=== PATIENT | female | born 1945 | race Hispanic/Latino ===

== ENCOUNTER → 2018-01-16 | Outpatient (CLI) | payer OTHER | END | disposition home or self-care (01) | LOC: RAH 11:09 | PROVIDERS: ATTEND Family Medicine | DX: Z12.31 Encounter for screening mammogram for malignant neoplasm of breast (principal) | CPT/HCPCS: 77067 ==

== ENCOUNTER → 2018-01-24 | Outpatient (CLI) | payer OTHER | END | disposition home or self-care (01) | LOC: OIH 13:35 | PROVIDERS: ATTEND Family Medicine | DX: M85.812 Other specified disorders of bone density and structure, left shoulder (principal) | CPT/HCPCS: 73030 ==

== ENCOUNTER → 2019-08-14 | Outpatient (CLI) | payer OTHER | END | disposition home or self-care (01) | LOC: RAH 09:08 | PROVIDERS: ATTEND Family Medicine | DX: Z12.31 Encounter for screening mammogram for malignant neoplasm of breast (principal) | CPT/HCPCS: 77067 ==

== ENCOUNTER → 2022-01-08 | Outpatient (CLI) | payer OTHER ==
[~2022-01-08] MED LIST: REGADENOSON 0.4 MG/5 ML PF SYG IVP SCH
== END | disposition home or self-care (01) ==
LOC: RAH 08:42
PROVIDERS: ATTEND Family Medicine
DX: R07.9 Chest pain, unspecified (principal)
CPT/HCPCS: 78452; 96374; 93017; J2785; A9500 ×2

== ENCOUNTER → 2024-03-20 | Outpatient (CLI) | payer OTHER ==
[~2024-03-20] MED LIST changes: +GADOTERATE MEGLUMINE 10 MMOL/20 ML VIAL IV ONE; -REGADENOSON 0.4 MG/5 ML PF SYG IVP SCH
--- NOTE | 2024-03-20 12:40 | HMCIMG ---
MR BRAIN WWO CON REASON: G50 Trigeminal neuralgia COMPARISON: There are no prior MRI scans available for comparison. TECHNIQUE: Routine cerebral imaging protocol was performed. Images are also obtained pre and post gadolinium contrast infusion. Postcontrast images were obtained with high-resolution thin section technique epicentered on the brainstem and skull base. High-resolution the CONTRAST: 15 cc MultiHance 529 IV. FINDINGS: There is scattered foci of increased signal intensity in the deep central white matter on T2 and FLAIR images, consistent with small vessel disease, mild in degree. There is otherwise normal appearing brain parenchyma. There are no focal mass lesions. There are no areas of abnormal contrast enhancement or abnormal signal intensity. Ventricles and sulci appear normal. Posterior fossa and brainstem structures appear unremarkable. There is no evidence of intracranial hemorrhage. Diffusion-weighted images are negative for an acute ischemic process. There are no abnormal fluid collections. Extracranial soft tissues appear normal as well. Additional high resolution images of the skull base show normal appearance of the brainstem. Expected course of the trigeminal nerve shows normal findings. There are no focal masses. There are no focal areas of abnormal contrast enhancement. IMPRESSION: 1. Normal MRI of the brain. Tube. Normal additional high resolution pre and postcontrast images of the skull base brainstem structures.
== END | disposition home or self-care (01) ==
LOC: RAH 09:06
PROVIDERS: ATTEND Family Medicine
DX: G50.0 Trigeminal neuralgia (principal)
CPT/HCPCS: 70553; A9575

== ENCOUNTER 2024-12-21 18:33 | Emergency (ER) | payer OTHER ==
[~2024-12-21] VITALS: Ht 157.5 cm; Wt 68.0 kg
--- NOTE | 2024-12-21 18:42 | ERN ---
ED Note History of Present Illness Stated Complaint: FACIAL PAIN Chief Complaint: Face Pain/Problem Time Seen by MD: 18:36 Dictation: PATIENT IS A 79-YEAR-OLD FEMALE COMING IN TODAY WITH TONGUE PAIN AND A FISSURE SHE HAS HAD SINCE TUESDAY. NO FEVER NO CHILLS NO NAUSEA VOMITING. SHE STATES SHE SAW HER PRIMARY CARE DOCTOR ON TUESDAY WHO TOLD HER TO GO HOME THAT IT WAS NOTHING. HOWEVER, THE PATIENT WAS NOT GIVEN A DIAGNOSIS. SHE WAS GIVEN AN INJECTION OF A STEROID. Allergies: Coded Allergies: No Allergy Information Available (Verified Allergy, Unknown, 01/08/22) Past Medical History Past Medical History: No Pertinent History Surgical History: None History: Not Applicable RN Note Reviewed/Agreed w/PFSH: Yes Review of System Dictation CONSTITUTIONAL: NEGATIVE EXCEPT FOR HPI HEAD/FACE: NEGATIVE EXCEPT FOR HPI EENT: NEGATIVE EXCEPT FOR HPI TONGUE PAIN RESPIRATORY: NEGATIVE EXCEPT FOR HPI GASTROINTESTINAL/ABDOMINAL: NEGATIVE EXCEPT FOR HPI GENITOURINARY: NEGATIVE EXCEPT FOR HPI MUSCULOSKELETAL: NEGATIVE EXCEPT FOR HPI INTEGUMENTARY: NEGATIVE EXCEPT FOR HPI NEUROLOGICAL/PSYCH: NEGATIVE EXCEPT FOR HPI HEMATOLOGIC/LYMPHATIC: NEGATIVE EXCEPT FOR HPI ALL SYSTEMS NEGATIVE, EXCEPT NOTED ABOVE. 13 POINT REVIEW OF SYSTEMS ASSESSED AND ALL NEGATIVE EXCEPT FOR ABOVE. Initial Vital Sign VS Vital Signs Date Time Temp Pulse Resp B/P (MAP) Pulse Ox O2 Delivery O2 Flow Rate FiO2 12/21/24 18:35 98.4 62 20 145/63 99 Room Air Physical Exam Dictation VITAL SIGNS REVIEWED GENERAL APPEARANCE: ALERT, ORIENTED X 3, NO ACUTE DISTRESS, WELL DEVELOPED, NOURISHED. HEAD AND FACE: NON-TRAUMATIC. EYES: PERRL, PINK CONJUNCTIVAS, EYELID NO TRAUMA, ANTERIOR CHAMBER WITH ARCUS SENILIS. EARS: PINNAS INTACT AND NO SIGNS OF TRAUMA OR ERYTHEMA EAR CANALS CLEAR AND NO DISCHARGE TM NO ERYTHEMA NOSE: NO DISCHARGE, NO BLEEDING. OROPHARYNX: MOUTH NORMAL, PALE WITH A FISSURE NOTED CENTRALLY. PHARYNX CLEAR,NO ERYTHEMA, TONSILS NO EXUDATES, NO ABSCESSES NOTED, MUCOUS MEMBRANE MOIST NECK: SUPPLE, NON-TENDER, NO THYROMEGALY, NO MASSES, NO JVD, NO BRUITS BREAST:DEFERRED CHEST:NO TENDERNESS, NO CREPITUS, NO PARADOXICAL MOVEMENT, NO RETRACTIONS LUNGS:CLEAR, WELL-VENTILATED, SYMMETRIC, NO RALES, NO WHEEZING, NO RHONCHI, NO STRIDOR, GOOD BREATH SOUNDS BILATERALLY HEART: REGULAR RATE, REGULAR RHYTHM, NO MURMUR, NO GALLOPS VASCULAR: NO PERIPHERAL EDEMA, ABDOMEN: SOFT, POSITIVE BOWEL SOUNDS, NONDISTENDED, NO GUARDING, NONTENDER, NO REBOUND, NO MASSES NO HEPATOMEGALY, NO SPLENOMEGALY, NO STALLINGS'S SIGN, NO HERNIAS. RECTAL: DEFERRED GENITAL: DEFERRED NEUROLOGICAL: NORMAL SPEECH, MOTOR FUNCTION INTACT, SENSORY FUNCTION INTACT MUSCULOSKELETAL: NECK NONTENDER, FULL RANGE OF MOTION, BACK NONTENDER, FULL RANGE OF MOTION, EXTREMITIES: NONTENDER, FULL RANGE OF MOTION SKIN: COLOR PINK, DRY, NO TURGOR, NO RASH, NO LACERATIONS, NO ABRASIONS, NO CONTUSIONS. LYMPHATIC: DEFERRED Results (Laboratory/Radiology) Laboratory/Radiology Laboratory Tests Test 12/21/24 18:58 White Blood Count 10.1 K/uL (4.8-10.8) Red Blood Count 4.49 MIL/uL (4.00-5.50) Hemoglobin 12.4 g/dL (12.0-16.0) Hematocrit 38.6 % (36-48) Mean Corpuscular Volume 86.0 fL (79-99) Mean Corpuscular Hemoglobin 27.6 pg (27.0-33.0) Mean Corpuscular Hemoglobin Concent 32.1 g/dL (32.0-36.0) Red Cell Distribution Width 14.5 % (11.0-15.5) Platelet Count 267 K/uL (130-400) Mean Platelet Volume 10.1 fL (7.5-10.5) Immature Granulocyte % (Auto) 0.3 % (0-1) Neutrophils (%) (Auto) 69.7 % (40.0-77.0) Lymphocytes (%) (Auto) 23.0 % (21.0-51.0) Monocytes (%) (Auto) 6.4 % (3.0-13.0) Eosinophils (%) (Auto) 0.3 % (0.0-8.0) Basophils (%) (Auto) 0.3 % (0.0-5.0) Neutrophils # (Auto) 7.0 K/uL (1.8-7.7) Lymphocytes # (Auto) 2.3 K/uL (1.0-4.8) Monocytes # (Auto) 0.6 K/uL (0.1-1.0) Eosinophils # (Auto) 0.03 K/uL (0.00-0.70) Basophils # (Auto) 0.03 K/uL (0.00-0.20) Absolute Immature Granulocyte (auto 0.03 K/uL (0-1) Nucleated Red Blood Cells 0.0 % (0.0-0.19) Sodium Level 142 mmol/L (136-145) Potassium Level 4.3 mmol/L (3.5-5.1) Chloride Level 104 mmol/L (101-111) Carbon Dioxide Level 29 mmol/L (21-32) Blood Urea Nitrogen 14 mg/dL (7-18) Creatinine 0.5 mg/dL (0.5-1.0) Glomerular Filtration Rate Calc 96 mL/min (>90) Random Glucose 104 mg/dL (70-105) Total Calcium 9.0 mg/dL (8.5-10.1) Labs Reviewed?: Yes ED Course ED Course Orders Procedure Category Date Status Time Cbc With Differential LAB 12/21/24 Complete 18:39 Basic Metabolic Panel LAB 12/21/24 Complete 18:39 Vital Signs Date Time Temp Pulse Resp B/P (MAP) Pulse Ox O2 Delivery O2 Flow Rate FiO2 12/21/24 18:35 98.4 62 20 145/63 99 Room Air 2024/LABS ARE UNREMARKABLE PATIENT WILL BE TREATED FOR GLOSSITIS SHE WILL BE GIVEN DIETARY GUIDELINES TO AVOID SPICY FOODS COFFEE TEA NICOTINIC ACID. NO TOMATO JUICE NO CITRUS FRUIT JUICE BRUSH TONGUE WITH SHE BRUSHES HER TEETH. SHE WILL BE PRESCRIBED DIFLUCAN 150 TOLD TO SEE HER DENTIST NEXT 1-2 DAYS Medical Decision Making MDM MEDICAL DECISION-MAKING BASED ON LABS TO RULE OUT BACTERIAL INFECTION ETIOLOGY OF GLOSSITIS LABS COMPLETELY UNREMARKABLE PATIENT WILL BE TREATED FOR GLOSSITIS WITH DIFLUCAN 150 X 1 DOSE MAY REPEAT IN 10 DAYS GIVEN DIETARY GUIDELINES TOLD TO SEE HER DENTIST NEXT 1-2 DAYS DX & DISP Disposition: Discharge Departure Impression: Primary Impression: Acute glossitis Condition: Stable Scripts Lidocaine HCl (Magic Mouthwash [Maalox/Lidocaine/Nystatin]) 200 Mg-200 Mg-20 M g/5 Ml Soln 15 ML PO TID for 7 Days, #355 ML 0 Refills 15 ML BY MOUTH, SWISH AND SPIT 3 TIMES A DAY FOR SEVEN DAYS. DO NOT SWALLOW. Prov: RHERONN BRITO 12/21/24 Fluconazole (Fluconazole) 150 Mg Tablet 150 MG PO ONCE, #2 TAB ONE TABLET BY MOUTH X1 DOSE. MAY REPEAT DOSE IN 10 DAYS. Prov: RONN BERGMAN 12/21/24 Additional Instructions: FOLLOW-UP WITH PRIMARY CARE PROVIDER IN 1 TO 2 DAYS. TAKE MEDICATIONS DIRECTED HERE IN THE EMERGENCY ROOM. OKAY TO CONTINUE HOME MEDICATIONS UNLESS OTHERWISE DISCUSSED DURING YOUR VISIT IN THE EMERGENCY ROOM TODAY. RETURN TO YOUR NEAREST EMERGENCY ROOM IF SYMPTOMS WORSEN OR IF THERE IS NO IMPROVEMENT. CALL 911 IF YOU NEED IMMEDIATE ASSISTANCE. TAKE TYLENOL OR MOTRIN SMAW-LDE-LCKLQUC NEEDED AND IF NO CONTRAINDICATIONS ARE PRESENT. INCREASE ORAL HYDRATION. A WOUND CULTURE OR URINE CULTURE WAS ORDERED HERE IN THE EMERGENCY ROOM DEPARTMENT PLEASE FOLLOW-UP WITH PRIMARY CARE PROVIDER AND ADVISE THEM TO GET REPEAT PORTS FROM OUR FACILITY. IF YOU HAD ANY KENA WRAP/SPLINTS THAT WERE APPLIED HERE, PLEASE DO NOT REMOVE THEM UNTIL YOU SEE YOUR PRIMARY CARE OR SPECIALTY. USE MAGIC MOUTHWASH 3 TIMES A DAY DIRECTED, DO NOT SWALLOW MESH WASH. TAKE DIFLUCAN X1 DOSE AND MAY REPEAT DOSE IN 10 DAYS. NO ICE TEA, NO SODA POP, NO SPICY FOODS, NO TOMATO JUICE, NO CITRUS FRUIT JUICE UNTIL CLEARED BY YOUR DENTIST OR DOCTOR. SEE YOUR DENTIST IN THE NEXT 1-2 DAYS FOR FOLLOW UP Referrals: IVAN TOBIN MD (PCP) Time of Disposition: 20:28 I have reviewed the case, and I agree with, Diagnosis and Plan RONN BERGMAN Dec 21, 2024 18:42
[2024-12-21 19:07] LABS: IMMATURE GRANULOCYTE ABSOLUTE 0.03 K/uL (0-1); NUCLEATED RED BLOOD CELLS 0.0 % (0.0-0.19); PLATELET COUNT (AUTO) 267 K/uL (130-400); RED BLOOD CELL COUNT(AUTO) 4.49 MIL/uL (4.00-5.50); RED CELL DISTRIBUTION WIDTH 14.5 % (11.0-15.5); WHITE BLOOD COUNT (AUTO) 10.1 K/uL (4.8-10.8)
[2024-12-21 19:13] LABS: CREATININE 0.5 mg/dL (0.5-1.0); GLOMERULAR FILTR. RATE CALC 96.0 mL/min (>90); GLUCOSE,RANDOM 104.0 mg/dL (70-105); SODIUM SERUM 142.0 mmol/L (136-145); UREA NITROGEN, BLOOD 14.0 mg/dL (7-18)
[2024-12-21] MEDS ORDERED: MAGIC PO (20:30)
[2024-12-21] MEDS ORDERED: FLUC150T48 PO (20:30)
[2024-12-21 21:00] VITALS: BP 145/63; PULSE 62; RESP 20; TEMP 98.4; O2SAT 99
== END 2024-12-21 21:33 | disposition home or self-care (01) ==
LOC: EDH 18:33
DX: K14.0 Glossitis (principal); Z79.899 Other long term (current) drug therapy
CPT/HCPCS: 36415; 80048; 85025; 99283